=== PATIENT | male | born 1955 | race Caucasian/White ===

== ENCOUNTER 2017-01-24 06:21 | Outpatient (CLI) | payer MEDICARE ==
--- NOTE | ~2017-01-24 | HEMODYNAMI ---
PATIENT:TOMER LEO JR MEDICAL RECORD: [id number] : 57 LOCATION:[facility] ADMISSION DATE: 01/24/17 Generatedon:01/24/20179:26 Patient name: TOMER LEO Patient #: [id number] SSN: : 1955 Date of study: 01/24/2017 Page: Of Hemodynamic Procedure Report Patient Data Patient Demographics Procedure consent was obtained First Name: TOMER Gender: Male Last Name: AHMET Suffix: [facility] Initial: MEKHI : 1955 Patient #: [id number] Age: 61 year(s) Race: Unknown Additional ID: [id number] Contact details [address]: [address] [place] [address] ROAD State: [place] City: [place] Zip code: [address] Past Medical History Allergies Allergen Reaction Date Comments Reported Sulfa drugs 01/24/2017 Admission Admission Data Admission Date: 01/24/2017 Admission Time: 6:21 Procedure Procedure Types Cath Procedure Diagnostic Procedure C [facility] w/Coronaries Miscellaneous Procedures Moderate Sedation up to 15 minutes Procedure Description Procedure Date Procedure Date: 01/24/2017 Procedure Start Time: 9:05 Procedure End Time: 9:25 Procedure Staff Name Function Nic Quarles MD Performing Physician Mariah Dugan RN Nurse Mahin Medrano RT Monitor Mekhi Michelle RT Scrub Procedure Data Cath Procedure Fluoroscopy Diagnostic fluoroscopy Total fluoroscopy Time: 2.6 time: 2.6 min min Diagnostic fluoroscopy Total fluoroscopy dose: 991 dose: 991 mGy mGy Contrast Material Contrast Material Type Amount (ml) Isovue 300 83 Entry Location Entry Primary Successful Side Size Upsize Upsize Entry Closure Tse ccessful Closure Location (Fr) 1 (Fr) 2 (Fr) Remarks Device Remarks Radial Right 6 Fr Mechanical artery Short Compression Estimated blood loss: 10 ml Diagnostic catheters Device Type Used For End Catheter Placement Terumo 5Fr Ventura 110cm Procedure catheter Procedure Complications No complications Procedure Medications Medication Administration Route Dosage Oxygen NC 2 l/min Heparin Flush Bag added to field 2 bags (1000units/500ml NS) Lidocaine 2% added to field 20 Radial Cocktail added to field 1 syringe (Verapomil 2mg/Nitro 400mcg/Heparin 1500units) Versed I.V. 1 mg Fentanyl I.V. 50 mcg Versed I.V. 1 mg Fentanyl I.V. 50 mcg Versed I.V. 1 mg Fentanyl I.V. 50 mcg Versed I.V. 1 mg Fentanyl I.V. 50 mcg Versed I.V. 1 mg Fentanyl I.V. 50 mcg Versed I.V. 1 mg Fentanyl I.V. 50 mcg Versed I.V. 1 mg Fentanyl I.V. 50 mcg Radial Cocktail I.A. 1 syringe (Verapomil 2mg/Nitro 400mcg/Heparin 1500units) Versed I.V. 1 mg Fentanyl I.V. 50 mcg Versed I.V. 1 mg Versed I.V. 1 mg Hemodynamics Rest Heart Rate: 73 (bpm) Pressure Samples Time Site Value (mmHg) Purpose Heart Use Rate(bpm) 9:08 LV 156/-15,9 Snapshot 76 9:09 AO 126/70(96) Pullback 56 9:09 LV 136/-14,7 Pullback 56 9:09 AO 128/51(85) Snapshot 76 Gradients Valve Time Site 1 Site 2 Mean SEP/DFP Peak To Heart Use (mmHg) (sec/min) Peak Rate (mmHg) (bpm) Aortic 9:09 LV AO 12 4 10 56 136/-14,7 126/70(96) Calculations Valve P-P Mean Valve Index Valve Source Name Gradient Area Flow (cm2) Aortic 10 12 10 12 Snapshots Pre Cath Intra NCS Post Cath Vital Signs Time Heart Resp SPO2 NIBP (mmHg) Rhythm Pain Sedation Rate (ipm) (%) Status Level (bpm) 8:31:58 71 16 98 189/98(152) NSR 0 (11) 10(A) , No pain 8:36:39 66 16 99 200/93(164) NSR 0 (11) 10(A) , No pain 8:41:20 71 16 99 192/100(145) NSR 0 (11) 10(A) , No pain 8:45:48 76 22 99 181/97(128) NSR 0 (11) 10(A) , No pain 8:50:19 71 16 99 168/93(138) NSR 0 (11) 10(A) , No pain 8:54:47 67 16 98 172/94(127) NSR 0 (11) 10(A) , No pain 8:59:17 72 16 98 153/93(131) NSR 0 (11) 10(A) , No pain 9:03:35 65 14 96 151/91(117) NSR 0 (11) 10(A) , No pain 9:07:57 73 16 96 147/94(133) NSR 0 (11) 10(A) , No pain 9:12:22 79 14 96 157/79(109) NSR 0 (11) 10(A) , No pain 9:16:50 76 16 97 138/84(120) NSR 0 (11) 10(A) , No pain 9:21:20 75 20 98 158/80(114) NSR 0 (11) 10(A) , No pain Medications Time Medication Route Dose Verified Delivered Reason Notes E ffectiveness by by 8:39:53 Oxygen NC 2 l/min Nic Mariah Per Willam Dugan RN physician 8:40:06 Heparin Flush added 2 bags Nic Nic used for Bag to Willam Quarles MD procedure (1000units/500ml field NS) 8:40:15 Lidocaine 2% added 20ml Nic Nic used for to vial Willam Quarles MD procedure field 8:40:26 Radial Cocktail added 1 Nic Nic used for (Verapomil to syringe Willam Quarles MD procedure 2mg/Nitro field 400mcg/Heparin 1500units) 8:48:55 Versed I.V. 1 mg Nic Mariah for sedation Willam Dugan RN 8:49:00 Fentanyl I.V. 50 mcg Nic Mariah for sedation Willam Dugan RN 8:51:15 Versed I.V. 1 mg Nic Mariah for sedation Willam Dugan RN 8:51:18 Fentanyl I.V. 50 mcg Nic Mariah for sedation Willam Dugan RN 8:53:17 Versed I.V. 1 mg Nic Mariah for sedation Willam Dugan RN 8:53:25 Fentanyl I.V. 50 mcg Nic Mariah for sedation Willam Dugan RN 8:55:40 Versed I.V. 1 mg Nic Mariah for sedation Willam Dugan RN 8:55:42 Fentanyl I.V. 50 mcg Nic Mariah for sedation Willam Dugan RN 8:57:13 Versed I.V. 1 mg Nic Mariah for sedation Willam Dugan RN 8:57:22 Fentanyl I.V. 50 mcg Nic Mariah for sedation Willam Dugan RN 8:59:37 Versed I.V. 1 mg Nic Mariah for sedation Willam Dugan RN 8:59:46 Fentanyl I.V. 50 mcg Nic Mariah for sedation Willam Dugan RN 9:01:17 Versed I.V. 1 mg Nic Mariah for sedation Willam Dugan RN 9:01:20 Fentanyl I.V. 50 mcg Nic Mariah for sedation Willam Dugan RN 9:05:44 Fentanyl I.V. 50 mcg Nic Mariah for sedation Willam Dugan RN 9:05:48 Versed I.V. 1 mg Nic Mariah for sedation Willam Dugan RN 9:06:39 Radial Cocktail I.A. 1 Nic Nic for (Verapomil syringe Willam Quarles MD vasodilation 2mg/Nitro 400mcg/Heparin 1500units) 9:10:11 Versed I.V. 1 mg Nic Mariah for sedation Willam Dugan RN 9:13:10 Versed I.V. 1 mg Nic Mariah for sedation Willam Dugan railroad brake repairer Log Time Note 7:51:15 Diagnostic Cath status Elective 7:51:25 Time tracking: Regular hours 7:51:29 Plan of Care:Hemodynamics will remain stable., Cardiac rhythm will remain stable., Comfort level will be maintained., Respiratory function will remain adequate., Patient/ family verbilizes understanding of procedure., Procedure tolerated without complication., Recovers from procedure without complications.. 8:08:45 Mahin Medrano RT(R) sent for patient. Start room use. 8:30:32 Patient received from Pre/Post Procedure Room to CCL 2 Alert and oriented. Tansferred to table in Supine position. 8:30:34 Warm blankets applied, and humaira hugger turned on for patient comfort. 8:30:34 Correct patient and procedure confirmed by team. 8:30:36 Signed procedure consent form obtained from patient. 8:30:36 ECG and BP/O2 sat monitors applied to patient. 8:30:37 Vital chart was started 8:30:38 Baseline sample Acquired. 8:30:41 Rhythm: sinus rhythm 8:30:42 Full Disclosure recording started 8:35:48 H&P Date Dictated: 01/15/2017 Within 30 days and on chart., H&P Addendum completed by physician on day of procedure. (MUST COMPLETE FOR ALL OUTPATIENTS). 8:35:49 Pre-procedure instructions explained to patient. 8:35:49 Pre-op teaching completed and patient verbalized understanding. 8:35:51 Family in waiting room. 8:35:52 Patient NPO since Midnight. 8:35:53 Is the patient allergic to Iodine/contrast media? No. 8:35:58 Is patient on blood thinner?No 8:36:01 Patient diabetic? No. 8:36:04 Previous problem with sedation/anesthesia? No ? 8:36:04 Snore? Yes 8:36:05 Sleep apnea? Yes 8:36:06 Deviated septum? No 8:36:07 Opens mouth fully? Yes 8:36:07 Sticks out tongue? Yes 8:36:09 Airway obstruction? No ? 8:36:12 Dentures? No ? 8:36:15 Pre procedure: right dorsailis pedis pulse 1+ Palpable, but thready & weak; easily obliterated 8:36:17 Modified Vin's test Ulnar < 7 seconds 8:36:18 Patient pain scale 0/10 ?. 8:36:21 IV patent on arrival in left forearm with 0.9% NaCl at KVO. 8:36:28 Lab results completed and on chart. 8:36:31 Right Radial & Right Groin area was prepped with chlora-prep and draped in sterile fashion 8:36:32 Alarms reviewed by R. N. 8:36:32 Sharps counted by scrub and verified by R.N. 8:36:35 Use device set Radial Dx 8:36:36 Tegaderm 4 x 4 opened to sterile field. 8:36:37 Acist Manifold opened to sterile field. 8:36:38 Acist Hand Control opened to sterile field. 8:36:40 Acist Syringe opened to sterile field. 8:36:40 Medline Cath Pack opened to sterile field. 8:36:40 Bag Decanter opened to sterile field. 8:36:41 Terumo 6Fr Slender Glidesheath opened to sterile field. 8:36:41 St Jez 260cm J .035 wire opened to sterile field. 8:36:42 MBrace Wrist Support opened to sterile field. 8:38:57 Cook 21G 4cm Radial Needle opened to sterile field. 8:39:53 Oxygen 2 l/min NC was administered by Mariah Dugan RN; Per physician; 8:40:06 Heparin Flush Bag (1000units/500ml NS) 2 bags added to field was administered by Nic Quarles MD; used for procedure; 8:40:15 Lidocaine 2% 20ml vial added to field was administered by Nic Quarles MD; used for procedure; 8:40:26 Radial Cocktail (Verapomil 2mg/Nitro 400mcg/Heparin 1500units) 1 syringe added to field was administered by Nic Quarles MD; used for procedure; 8:43:27 Baseline sample Acquired. 8:48:00 Right Radial & Right Groin site verified by team. 8:48:00 Final Timeout: patient, procedure, and site verified with staff and physician. All members of the team are in agreement. 8:48:00 --------ALL STOP TIME OUT------ 8:48:21 Physical assessment completed. ASA score P 2 - A patient with mild systemic disease as per Nic Quarles MD. 8:48:24 Sedation plan: IV Moderate Sedation Versed, Fentanyl 8:48:55 Versed 1 mg I.V. was administered by Mariah Dugan RN; for sedation; 8:48:59 Zero performed for pressure channel P1 8:49:00 Fentanyl 50 mcg I.V. was administered by Mariah Dugan RN; for sedation; 8:49:52 Baseline sample Acquired. 8:51:15 Versed 1 mg I.V. was administered by Mariah Dugan RN; for sedation; 8:51:18 Fentanyl 50 mcg I.V. was administered by Mariah Dugan RN; for sedation; 8:53:17 Versed 1 mg I.V. was administered by Mariah Dugan RN; for sedation; 8:53:25 Fentanyl 50 mcg I.V. was administered by Mariah Dugan RN; for sedation; 8:55:40 Versed 1 mg I.V. was administered by Mariah Dugan RN; for sedation; 8:55:42 Fentanyl 50 mcg I.V. was administered by Mariah Dugan RN; for sedation; 8:57:13 Versed 1 mg I.V. was administered by Mariah Dugan RN; for sedation; 8:57:22 Fentanyl 50 mcg I.V. was administered by Mariah Dugan RN; for sedation; 8:59:37 Versed 1 mg I.V. was administered by Mariah Dugan RN; for sedation; 8:59:46 Fentanyl 50 mcg I.V. was administered by Mariah Dugan RN; for sedation; 9:01:17 Versed 1 mg I.V. was administered by Mariah Dugan RN; for sedation; 9:01:20 Fentanyl 50 mcg I.V. was administered by Mariah Dugan RN; for sedation; 9:05:26 Procedure started. 9:05:44 Fentanyl 50 mcg I.V. was administered by Mariah Dugan RN; for sedation; 9:05:48 Versed 1 mg I.V. was administered by Mariah Dugan RN; for sedation; 9:05:54 Local anesthetic to right radial artery with Lidocaine 2% by Nic Quarles MD.INITIAL ACCESS ONLY 9:06:11 A 6 Fr Short sheath was inserted into the Right Radial artery 9:06:39 Radial Cocktail (Verapomil 2mg/Nitro 400mcg/Heparin 1500units) 1 syringe I.A. was administered by Nic Quarles MD; for vasodilation; 9:07:01 A D[place]om 5Fr Ventura 110cm catheter was advanced over the wire and used for Procedure. 9:08:18 LV angiography performed. 9:08:19 LV gram done using ALMENDAREZ 9:08:50 EF : 60 % 9:08:57 LV hemodynamics recorded. 9:09:00 Injector settings: Ml/sec: 5, Volume: 15, 9:09:49 Patient allergic to Sulfa drugs 9:09:58 LCA angiography performed. 9::11 Versed 1 mg I.V. was administered by Mariah Dugan RN; for sedation; 9:13:10 Versed 1 mg I.V. was administered by Mariah Dugan RN; for sedation; 9:13:32 RCA angiography performed. 9:15:56 Catheter exchanged over wire. 9:16:33 Terumo TR Band Large opened to sterile field. 9:19:19 Sheath removed intact; hemostasis achieved with Mechanical Compression to the Right Radial artery. 9:19:22 Procedure ended.(Physican Out) 9:20:19 Fluoroscopy time 02.60 minutes. 9:20:24 Flurop Dose total: 991 9:20:24 Fluoroscopy dose: 991 mGy 9:20:27 Contrast amount:Isovue 300 83ml. 9:20:28 Sharps counted by scrub and verified by R.N. 9:20:33 TR band inflated with 10cc of air. 9:20:34 Insertion/operative site no bleeding no hematoma. 9:20:36 Post Procedure Pulses reassessed and unchanged 9:20:38 Post-procedure physical assessment completed. ASA score P 2 - A patient with mild systemic disease as per Nic Quarles MD. 9:20:40 Post procedure rhythm: unchanged. 9:20:43 Estimated blood loss: 10 ml 9:20:45 Post procedure instruction explained to patient.Patient verbalizes understanding. 9:20:45 Patient needs reinforcement of post procedure teaching. 9:20:59 Procedure type changed to Cath procedure, Diagnostic procedure, LHC, LHC w/Coronaries, Miscellaneous Procedures, Moderate Sedation up to 15 minutes 9:21:19 Procedure Complication : No complications 9:21:41 Procedure and supply charges have been captured, reviewed, submitted and are correct. 9:24:54 Vital chart was stopped 9:24:55 See physician's report for complete and final results. 9:24:57 Report given to Pre/Post Procedure Room. 9:25:00 Patient transfered to Pre/Post Procedure Room with Stretcher. 9:25:03 Procedure ended. 9:25:03 Full Disclosure recording stopped 9:25:11 End room use (Document Last) Device Usage Item Name Manufacture Quantity Catalog Hospital Part Current Minimal Lot# / Number Charge Number Stock Stock Serial# Code Tegaderm 4 1 [id number] [id number] 5 x 4 Acist Acist 1 84667 269914 751306 220481 5 Manifold [employer] Inc Acist Hand Acist 1 28562 634643 987341 094784 5 Control Medical [employer] Inc Acist Acist 1 27738 847837 741890 915056 20 Syringe Medical Systems Inc Medline Cardinal 1 [id number] 252959 63964 800882 5 Cath Pack Health Bag Microtek 1 2001S 019708 95486 098147 5 Decanter Medical Inc. Terumo 6Fr Terumo 1 [id number] 999900 451847 504526 [address] Jez St Jez 1 209817 525408 520371 893862 30 260cm J .035 wire MBrace Advanced 1 140-0250-00 873432 04328 317687 5 Wrist Vascular Support Dynamics Cook 21G Cook Medical 1 [id number] 819244 135690 398909 5 4cm Radial Needle Terumo 5Fr Terumo 1 31-7184 582576 134790 548531 5 Ventura 110cm catheter Terumo TR Terumo 1 [id number] 960245 024755 012874 40 Band Large Signature Audit [place] Stage Time Signature Unsigned Intra-Procedure 01/24/2017 Mahin Medrano 9:26:11 AM RT(R) Signatures Monitor : Mahin Medrano RT Signature : Date : Time : [facility] [address] [place] [address]
[2017-01-24] MEDS ORDERED: CIPRO500 MG PO (07:03)
[2017-01-24] MEDS ORDERED: FLAGYL500 MG PO (07:04)
[2017-01-24] MEDS ORDERED: DIOVAN40 MG PO (07:04)
[2017-01-24] MEDS ORDERED: HYDROCODONE-APA1 TAB PO (07:05)
[2017-01-24] MEDS ORDERED: HYTRIN5 MG (07:06)
[2017-01-24 07:08] VITALS: BP 164/80; BMI 37.5
[2017-01-24 07:35] LABS: CALC OSMOLALITY 278 mosm/kg (275-300); CALCIUM 8.7 mg/dL (8.5-10.1); CARBON DIOXIDE 22.8 mmol/L (21.0-32.0); CHLORIDE - SERUM 105 mmol/L (98-107); CREATININE - SERUM 0.9 mg/dL (0.6-1.3); GLUCOSE 110 mg/dL (74-106); POTASSIUM - SERUM 4.1 mmol/L (3.5-5.1); SODIUM 139 mmol/L (136-145); UREA NITROGEN 13 mg/dL (7-18); eGFR NON AFRICAN AMERICAN > 90 mL/min (90-120)
[2017-01-24 08:17] LABS: BASOPHILS 0.5 % (0.0-2.0); EOSINOPHILS 2.7 % (0-7); HEMATOCRIT 43.9 % (42.0-54.0); HEMOGLOBIN 15.1 g/dL (13.5-17.5); IMMATURE GRANULOCYTES 0.5 % (0-5); LYMPHOCYTES 32.6 % (15-50); MCH 30.6 pg (26.0-34.0); MCHC 34.4 g/dL (31.0-37.0); MCV 88.9 fL (80.0-100.0); MEAN PLATELET VOLUME 10.4 fL (7.4-10.4); MONOCYTES 8.7 % (2-11); PLATELET COUNT 229 10x3/uL (130-400); RBC 4.94 10x6/uL (4.20-6.10); RDW 12.5 % (11.5-14.5); WBC 6.2 10x3/uL (4.8-10.8)
--- NOTE | 2017-01-24 09:55 | NUR ---
0950 PATIENT AWAKE, TALKING WITH FAMILY AT BEDSIDE. NSR RATE 64 W NO C/O CHEST PAIN. PULSES PALP X 4. ROOM AIR WITH NO RESP DISTRESS. R WRIST TR BAND C/D/I WITH NO HEMATOMA OR BLEEDING. DENIES NEEDS AT THIS TIME.
--- NOTE | 2017-01-24 11:18 | NUR ---
SITTING UP EATING TURKEY SANDWICH, FAMILY AT BEDSIDE. 2CC AIR REMOVED FROM R WRIST TR BAND.
--- NOTE | 2017-01-24 11:36 | NUR ---
2CC AIR REMOVED FROM R WRIST TR BAND. NO BLEEDING OR HEMATOMA NOTED. WILL CONTINUE TO MONITOR CLOSELY. PIV REMOVED FROM LEFT HAND WITH BANDAID APPLIED.
--- NOTE | 2017-01-24 12:23 | NUR ---
REMAINING AIR REMOVED FROM R WRIST TR BAND. TEGADERM AND 2X2 APPLIED TO R WRIST. D/C INSTRUCTIONS DISCUSSED WITH PATIENT AND AT BEDSIDE. WHEELED OUT VIA WHEELCHAIR BY CATH TEAM.
--- NOTE | 2017-02-01 12:24 | OP ---
PATIENT NAME: TOMER LEO JR MEDICAL RECORD: [id number] :57 LOCATION:[facility] ADMISSION DATE: SURGEON: SASKIA CAO M.D. DATE OF OPERATION: 01/24/2017 REFERRING PHYSICIAN: David Denis MD. PROCEDURES PERFORMED: 1. Selective coronary angiography. 2. Left heart catheterization with ventriculogram. INDICATION: A 61-year-old gentleman who presents with symptoms of accelerating angina. EQUIPMENT USED: A 5-Barbadian Ventura catheter. TECHNIQUE: A 6-Barbadian sheath was inserted in retrograde fashion in the right radial artery. Next, selective coronary angiography was performed in standard views using 5-Barbadian Ventura catheter. Left heart catheterization was performed using Ventura catheter as well. CORONARY ANATOMY: 1. Left main: Left main trunk is large in caliber. It gives rise to the LAD and circumflex. There is no obstruction. 2. LAD: This is a large-caliber vessel, which extends to the apex. The proximal vessel has an irregular 50% stenosis. The first diagonal branch is small to moderate in caliber. It has a long 70% stenosis. 3. Circumflex: This vessel is large in caliber. At the bifurcation point, the circumflex appears to have tandem 60% stenoses. 4. Right coronary: This vessel is large in caliber and dominant. It has mild irregularities throughout its course, but nothing worse than 30%. 5. Left ventricle: Left ventricle is normal in size and function. No wall motion abnormalities are noted. Estimated ejection fraction is 60%. IMPRESSION: 1. Moderate coronary artery disease. 2. Normal left ventricular function. RECOMMENDATIONS: Likely proceed with Cardiolite stress test and see if he has ischemic territory of the LAD or circumflex to account for symptoms. TRANSINT:[id number] Voice Confirmation ID: [id number] DOCUMENT ID: [id number] SASKIA CAO M.D. at 1224 CC: [id number] DICTATION DATE: 01/24/17921 [place]: 01/24/17 1057 DEP CLI 01/24/17 [place] [address]
== END 2017-01-24 12:25 | disposition home or self-care (01) ==
LOC: D.CATH 06:21
PROVIDERS: Internal Medicine Cardiovascular Disease
DX: I20.9 Angina pectoris, unspecified (principal); I10 Essential (primary) hypertension; R07.9 Chest pain, unspecified; R06.02 Shortness of breath